=== PATIENT | male | born 1950 | race Caucasian/White ===

== ENCOUNTER 2024-05-30 10:00 | Outpatient (RCR) | payer MEDICARE, OTHER | END 2024-06-02 | LOC: PT 10:00 | PROVIDERS: ATTEND Specialist | DX: S46.011D Strain of muscle(s) and tendon(s) of the rotator cuff of right shoulder, subsequent encounter (principal); M62.81 Muscle weakness (generalized); M25.511 Pain in right shoulder; M25.611 Stiffness of right shoulder, not elsewhere classified ==

== ENCOUNTER 2024-06-13 09:56 | Outpatient (RCR) | payer MEDICARE, OTHER | END 2024-07-03 | LOC: PT 09:56 | PROVIDERS: ATTEND Specialist | DX: S46.011D Strain of muscle(s) and tendon(s) of the rotator cuff of right shoulder, subsequent encounter (principal); M25.511 Pain in right shoulder; M25.611 Stiffness of right shoulder, not elsewhere classified; M62.81 Muscle weakness (generalized) ==